=== PATIENT | female | born 2000 | race Two or more races ===

== ENCOUNTER 2018-05-20 07:56 | Emergency (ER) | payer OTHER ==
[~2018-05-20] VITALS: Ht 167.6 cm; Wt 54.4 kg
[2018-05-20] MEDS ORDERED: TUSSI PRES-B L120 M1 PO (10:54)
[2018-05-20] MEDS ORDERED: ZITHROMAX500 MG PO (10:54)
== END 2018-05-20 11:40 | disposition home or self-care (01) ==
LOC: ER 07:56
DX: B34.9 Viral infection, unspecified (principal)